=== PATIENT | male | born 1975 | race Caucasian/White ===

== ENCOUNTER 2020-06-08 17:28 | Emergency (ER) | payer SELFPAY ==
[~2020-06-08 17:28] MED LIST: Iopamidol-370 76% 500 ML 1 ML ONE
[2020-06-08 18:01] LABS: #Basophils 0.1 thou/uL (0.0-0.2); #Eosinphils 0.2 thou/uL (0.0-0.7); #Lymphocytes 3.7 thou/uL (1.20-3.40); #Monocytes 1.3 thou/uL (0.11-0.59); #Neutrophils 7.7 thou/uL (1.40-6.50); %Basophils 0.9 % (0.0-1.0); %Eosinophils 1.8 % (0.0-10.0); %Lymphocytes 28.5 % (21.0-51.0); %Neutrophils 58.8 % (42.0-75.0); Hemoglobin 14.8 g/dL (14.0-18.0); Mean Corpuscular HGB CONC 32.7 g/dL (32.0-36.0); Mean Corpuscular Hemoglobin 30.2 pg (27.0-31.0); Mean Corpuscular Volume 92.5 fL (78.0-98.0); Mean Platelet Volume 6.5 fL (7.4-10.4); Platelet Count 475 thou/uL (130-400); RBC Distribution Width 12.1 % (11.5-14.5)
[2020-06-08] MEDS ORDERED: Morphine 4 MG/ML VIAL ONE (18:03)
[2020-06-08 18:24] LABS: ALT (SGPT) 22 U/L (8-55); AST (SGOT) 21 U/L (5-34); Albumin 4.1 g/dL (3.5-5.0); Alcohol Less than 10 mg/dL (Less than 10); Alkaline Phosphatase 134 U/L (40-110); Anion Gap 14 mmol/L (10-20); BUN (Urea Nitrogen) 16 mg/dL (8.9-20.6); Bilirubin, Total 0.5 mg/dL (0.2-1.2); Calc. Creatinine Clearance 0 mL/min (70-130); Calcium 9.7 mg/dL (7.8-10.44); Carbon Dioxide 29 mmol/L (22-29); Chloride 101 mmol/L (98-107); Globulin 3.5 g/dL (2.4-3.5); Glucose 79 mg/dL (70-105); Potassium 3.5 mmol/L (3.5-5.1); Protein, Total 7.6 g/dL (6.0-8.3); Sodium 140 mmol/L (136-145)
[2020-06-08] MEDS ORDERED: Lidocaine 1% w/Epinephrine 1:100K 20 ML VIAL ONE (18:55)
[2020-06-08] MEDS ORDERED: Lidocaine 4% Cream 5 GM TUBE w/ Tegaderm ONE (19:05)
== END 2020-06-08 22:16 | disposition home or self-care (01) ==
LOC: ERS 17:28
DX: S02.40EA Zygomatic fracture, right side, initial encounter for closed fracture (principal); S01.81XA Laceration without foreign body of other part of head, initial encounter; V89.2XXA Person injured in unspecified motor-vehicle accident, traffic, initial encounter
CPT/HCPCS: 12013; 70450; 70486; 71045; 71260; 72125; 72170; 74177; 80053; 80307; 85025; 94760; 96374; G0390; J2270; Q9967

== ENCOUNTER 2021-04-12 18:51 | Emergency (ER) | payer SELFPAY ==
[2021-04-13 14:28] LABS: SARS-CoV-2 PCR by NAA DETECTED (NotDetected)
== END 2021-04-12 20:30 | disposition home or self-care (01) ==
LOC: ERS 18:51
DX: U07.1 COVID-19 (principal)
CPT/HCPCS: 99283; U0003; U0005

== ENCOUNTER 2021-10-26 15:36 | Emergency (ER) | payer SELFPAY ==
[2021-10-26] MEDS ORDERED: Ondansetron ODT 4 MG TAB ONE (16:57)
== END 2021-10-26 17:34 | disposition home or self-care (01) ==
LOC: ERS 15:36
DX: A08.4 Viral intestinal infection, unspecified (principal)
CPT/HCPCS: 99284; Q0162

== ENCOUNTER 2021-11-01 10:59 | Emergency (ER) | payer SELFPAY ==
[2021-11-01] MEDS ORDERED: Ketorolac Tromethamine 30 MG/ML VIAL ONE (13:00)
[2021-11-01] MEDS ORDERED: Mag-Al 1200 mg/1200 mg/30 ML UDCUP ONE (13:00)
[2021-11-01] MEDS ORDERED: Benzocaine 20% Spray 60 ML CAN ONE (13:01)
== END 2021-11-01 13:32 | disposition home or self-care (01) ==
LOC: ERS 10:59
DX: B34.9 Viral infection, unspecified (principal); Z20.822 Contact with and (suspected) exposure to COVID-19
CPT/HCPCS: 96372; 99283; J1885; U0003; U0005